=== PATIENT | female | born 1945 | race Caucasian/White ===

== ENCOUNTER 2017-04-01 08:49 | Emergency (ER) | payer BC, OTHER ==
[2017-04-01 08:55] VITALS: BP 149/80; PULSE 72; TEMP 98.8; BMI 26.5
--- NOTE | 2017-04-01 09:32 | PDOC ---
History of Present Illness - General Chief Complaint: Injury Stated Complaint: FALL Time Seen by Provider: 04/01/17 09:00 History Source: Patient Exam Limitations: No Limitations - History of Present Illness Initial Comments: 04/01/17 09:27 CHIEF COMPLAINT: Brought in by ambulance, accidental fall hit head on concrete step no LOC, severe anxiety, denies use of aspirin or anticoagulation HISTORY OF PRESENT ILLNESS: Patient is a 71 -year-old female, brought in by ambulance, status post fall while at [facility] states she was walking outside to make a phone call missed a step and fell backwards hitting head on concrete patient with severe anxiety, hematoma noted to right occiput, patient shaking with anxiety which son states is normal. Denies use of aspirin only on Synthroid no anticoagulation. Patient denies any chest pain or shortness of breath, positive headache, no visual disturbance, no neurosensory deficits. PMH: Anxiety, hypothyroidism MEDS: Synthroid ALLERGIES: None PCP: Nicholas Yuan REVIEW OF SYSTEMS: GENERAL/CONSTITUTIONAL: Awake alert and oriented HEAD, EYES, EARS, NOSE AND THROAT: No change in vision. No facial edema, no bruising. NO active bleeding. Nares intact. RESPIRATORY: No cough, wheezing, or hemoptysis. CARDIAC: Denies chest pain, no shortness of breathe. MUSCULOSKELETAL: No spinal point tenderness, Good ROM to all four extremeties. NO CVA tenderness. lateral neck pain. GI/: Denies abdominal pain, no nausea or vomiting, no bloody stool, no Hematuria. SKIN : No erythema or bruising noted. No abrasion or lacerations. NEUROLOGIC: No loss of consciousness, no numbness or tingling. Hematoma noted to right occiput PHYSICAL EXAM: GENERAL: Awake and alert and oriented x3. EYES: The pupils are equal, round, and reactive to light, with clear, conjunctiva. Good extraocular movement. No nystagmus NOSE: No nasal trauma . Midface stable MOUTH: Teeth intact. EARS: The ear canals and tympanic membranes are normal without trauma. No drainage. NECK: No Lower cervical C-spine tenderness, no pain with chin to chest. CHEST: The lungs are clear without crackles, or wheezes. No subcutaneous emphysema. No crepitus. HEART: Heart is regular rhythm, with normal S1 and S2, no murmurs. ABDOMEN: The abdomen is soft and nontender with normal bowel sounds. There is no guarding or rebound. MUSCULOSKELETAL: No spinal point tenderness. No bruising or erythema. Pelvis stable. NEUROLOGICAL:Mental status: The patient is oriented x3. No Generalized headache , Romberg - Cranial nerves: Cranial nerves II through XII are intact Motor: The upper extremities are 5 over 5 in all muscle groups. The lower extremities are 5 over 5 in all muscle groups. Sensation: Sensation is intact to light touch throughout. Cerebellar: [id number] is normal in both upper extremities. Heel-knee- rodriguez is normal in both lower extremities. Reflexes: 2+ and symmetric in the upper and lower extremities. Gait: Normal. Heel and toe walking are normal. Tandem gait is normal. SKIN: Hematoma noted to right occiput, no crepirtis, no stepoff. Past History - Past Medical History Allergies/Adverse Reactions: Allergies Allergy/AdvReac Type Severity Reaction Status Date / Time No Known Allergies Allergy Verified 04/01/17 08:52 Home Medications: Ambulatory Orders Ascorbate Calcium/Bioflav [Geovanna-C 500 mg Tablet] 1 each PO DAILY 09/16/14 Ca Cmb No.1/Vit D3/B-6/FA/B12 [Vitamin D3 1,000 Unit Tablet] 1 each PO DAILY Rosuvastatin Calcium [Crestor] 10 mg PO DAILY 09/16/14 Levothyroxine [Synthroid -] 88 mcg PO DAILY 09/29/14 Losartan Potassium [Cozaar -] 50 mg PO DAILY #30 tablet 10/01/14 Hypercholesterolemia: Yes Psychiatric Problems: Yes (ANXIETY.) Thyroid Disease: Yes (HYPO.) - Psycho/Social/Smoking Cessation Hx Anxiety: Yes Suicidal Ideation: No Smoking Status: No Smoking History: Never smoked Number of Cigarettes Smoked Daily: 0 Hx Alcohol Use: No Drug/Substance Use Hx: No *Physical Exam - Vital Signs Last Vital Signs Temp Pulse Resp BP Pulse Ox 98.8 F 72 18 149/80 98 04/01/17 08:52 04/01/17 08:52 04/01/17 08:52 04/01/17 08:52 04/01/17 08:52 ED Treatment Course - RADIOLOGY Radiology Studies Ordered: Category Date Time Status HEAD CT WITHOUT CONTRAST [CT] Stat CT Scan 04/01/17 09:26 Ordered Medical Decision Making - Medical Decision Making 04/01/17 09:31 A/P: Patient status post fall, head injury, not on anticoagulation however patient with severe anxiety unable to assess Patient appropriately, son states that this is patient's normal baseline. Will perform head CT, patient denies any neck pain no neurosensory deficits. 04/01/17 10:00 CT scan is negative for acute intracranial pathology, no fracture, will DC patient home supportive care no Motrin or Advil aspirin or Aleve, Tylenol only for headache. I discussed the physical exam findings, ancillary test results and final diagnoses with the patient. I answered all of the patient's questions. The patient was satisfied with the care received and felt comfortable with the discharge plan and treatment plan. The patient will call to arrange follow-up and will return to the Emergency Department with any new, persistent or worsening symptoms. *DC/Admit/Observation/Transfer Diagnosis at time of Disposition: Closed head injury Qualifiers: Encounter type: initial encounter Qualified Code(s): S09.90XA - Unspecified injury of head, initial encounter - Discharge Dispostion Disposition: HOME Condition at time of disposition: Good Admit: No - Referrals Referrals: Bhavesh Jara MD [Primary Care Provider] - - Patient Instructions Printed Discharge Instructions: DI for Closed Head Injury Additional Instructions: U head CAT scan is negative for acute intracranial pathology, there is no evidence of fracture. If any increased headache, visual disturbance, nausea vomiting, neurosensory deficits, or any other concerns please call 911 or return immediately to emergency department. Advil, Aleve, Motrin or aspirin for the next 48 hours
== END 2017-04-01 10:04 | disposition home or self-care (01) ==
LOC: JERFT 08:49 → SUPCPDRO 08:49 → JERFT 10:04
DX: S00.03XA Contusion of scalp, initial encounter (principal); W10.8XXA Fall (on) (from) other stairs and steps, initial encounter; Y93.89 Activity, other specified; Y92.22 Religious institution as the place of occurrence of the external cause; Y99.8 Other external cause status; E03.9 Hypothyroidism, unspecified; F41.9 Anxiety disorder, unspecified; E78.00 Pure hypercholesterolemia, unspecified
CPT/HCPCS: 70450-TC; 99281-25

== ENCOUNTER 2024-05-08 10:35 | Emergency (ER) | payer OTHER, BC ==
[2024-05-08 10:47] VITALS: BMI 28.3
[2024-05-08] MEDS: SODIUM CHLORIDE 0.9% 500 ML INFUS.BAG IV ONE (13:07)
[2024-05-08 13:10] LABS: BASO % 0.5 % (0-2.0); EOS % 1.8 % (0-4.5); HEMATOCRIT 38.8 % (32.4-45.2); HEMOGLOBIN 13.3 GM/dL (10.7-15.3); LYMPH % 23.7 % (8-40); MCH 29.8 pg (25.7-33.7); MCHC 34.2 g/dl (32.0-36.0); MEAN CELL VOLUME 87.2 fl (80-96); MEAN PLT VOLUME 8.6 fl (7.5-11.1); MONO % 7.6 % (3.8-10.2); NEUT % 66.4 % (42.8-82.8); PLATELET COUNT 210 10^3/uL (134-434); RBC 4.44 M/mm3 (3.60-5.2); RDW 13.8 % (11.6-15.6); WHITE BLOOD COUNT 6.4 K/mm3 (4.0-10.0)
[2024-05-08 13:24] LABS: POTASSIUM 5.7 mmol/L (3.5-5.1)
[2024-05-08 13:26] LABS: BLOOD UREA NITROGEN 13.8 mg/dL (7-18); CALCIUM 9.1 mg/dL (8.5-10.1)
[2024-05-08 13:27] LABS: ALBUMIN 3.4 g/dl (3.4-5.0)
[2024-05-08 13:29] LABS: CREATININE 0.8 mg/dL (0.55-1.3)
[2024-05-08 13:31] LABS: BILIRUBIN,TOTAL 0.9 mg/dL (0.2-1)
[2024-05-08] MEDS ORDERED: MECLIZINE HCL 25 MG TABLET (FP) ONE (13:48)
[2024-05-08] MEDS: MECLIZINE HCL 25 MG TABLET (FP) PO ONE (13:51)
[2024-05-08] MEDS: LACTATED RINGERS SOLUTION 1000 ML INFUS.BAG IV ONE (18:28)
[2024-05-08] MEDS ORDERED: DOCUSATE SODIUM 100 MG CAPSULE (FP) PO PRN (20:42)
[2024-05-09 09:26] LABS: BASO % 0.4 % (0-2.0); EOS % 3.3 % (0-4.5); HEMATOCRIT 38.1 % (32.4-45.2); HEMOGLOBIN 12.9 GM/dL (10.7-15.3); LYMPH % 27.3 % (8-40); MCH 29.5 pg (25.7-33.7); MCHC 33.9 g/dl (32.0-36.0); MEAN CELL VOLUME 87.3 fl (80-96); MEAN PLT VOLUME 8.8 fl (7.5-11.1); MONO % 9.4 % (3.8-10.2); NEUT % 59.6 % (42.8-82.8); PLATELET COUNT 210 10^3/uL (134-434); RBC 4.37 M/mm3 (3.60-5.2); RDW 13.9 % (11.6-15.6); WHITE BLOOD COUNT 6.3 K/mm3 (4.0-10.0)
[2024-05-09 09:47] LABS: POTASSIUM 4.3 mmol/L (3.5-5.1)
[2024-05-09 10:12] LABS: MAGNESIUM 2.4 mg/dL (1.8-2.4)
[2024-05-09] MEDS: CANDESARTAN CILEXETIL PO SCH (10:12)
[2024-05-09 10:15] LABS: CREATININE 0.7 mg/dL (0.55-1.3); PHOSPHOROUS 3.5 mg/dL (2.5-4.9)
[2024-05-09 19:03] LABS: EPI CELLS 3 /uL (0-25.1); HYALINE CASTS 0 /uL (0-3.1); PH,URINE 6.5 (5.0-8.0); URINE APPEARANCE CLEAR; URINE BACTERIA 9 /uL (0-1359); URINE BILIRUBIN NEGATIVE (NEGATIVE); URINE COLOR YELLOW; URINE GLUCOSE (UA) NEGATIVE (NEGATIVE); URINE KETONE NEGATIVE (NEGATIVE); URINE LEUK ESTERASE TRACE (NEGATIVE); URINE NITRITE NEGATIVE (NEGATIVE); URINE PROTEIN NEGATIVE (NEGATIVE); URINE RBC 6 /uL (0-23.9); URINE UROBILINOGEN 0.2 mg/dL (0.2-1.0); URINE WBC 7 /uL (0-25.8)
[2024-05-09] MEDS: amLODIPine BESYLATE 2.5 MG TABLET (FP) PO SCH (21:25)
[2024-05-10 05:04] VITALS: RESP 18
[2024-05-10] MEDS: ACETAMINOPHEN 325 MG TABLET (FP) PO PRN (07:09)
[2024-05-10] MEDS: MECLIZINE HCL 12.5 MG TABLET PO PRN (08:49)
[2024-05-10] MEDS: LIDOCAINE 4% PATCH TP SCH (10:45)
[2024-05-10] MEDS: POLYETHYLENE GLYCOL (HEALTHYLAX) 3350 17 GM PACKET PO SCH (10:46)
[2024-05-10 18:44] VITALS: BP 111/68; PULSE 61; TEMP 98.5
[2024-05-10] MEDS ORDERED: LIDOCAINE PATCH REMOVAL MC SCH (22:00)
== END 2024-05-10 19:36 | disposition home or self-care (01) ==
LOC: JER 10:35 → JERBED 16:24 → J4S 05-09 03:18
PROVIDERS: ADMIT Internal Medicine; ATTEND Family Medicine
DX: R42 Dizziness and giddiness (principal); R11.0 Nausea
CPT/HCPCS: 36415; 70450-TC; 80048; 80053; 81003; 82607; 82746; 82962; 83735; 84100; 84439; 84443; 85025; 87086; 93005; 93010; 97116-GP; 97161-GP; 99285-25; G0378

== ENCOUNTER 2024-05-13 04:20 | Day surgery (SDC) | payer OTHER, BC ==
[2024-05-08 13:43] VITALS: BMI 28.9
[2024-05-13 11:07] VITALS: TEMP 98
[2024-05-13 11:42] VITALS: BP 115/69; PULSE 64; RESP 12
== END 2024-05-13 12:01 | disposition home or self-care (01) ==
LOC: JASU-ENDO 04:20
PROVIDERS: ATTEND Internal Medicine Gastroenterology
PROC: 0DBL8ZX Excision of Transverse Colon, Via Natural or Artificial Opening Endoscopic, Diagnostic (ICD-10-PCS; 2024-05-13)
PROC: 0DBN8ZX Excision of Sigmoid Colon, Via Natural or Artificial Opening Endoscopic, Diagnostic (ICD-10-PCS; 2024-05-13)
PROC: 0DBM8ZX Excision of Descending Colon, Via Natural or Artificial Opening Endoscopic, Diagnostic (ICD-10-PCS; 2024-05-13)
PROC: 0DBK8ZX Excision of Ascending Colon, Via Natural or Artificial Opening Endoscopic, Diagnostic (ICD-10-PCS; principal; 2024-05-13 09:30)
DX: K64.8 Other hemorrhoids (principal); D12.2 Benign neoplasm of ascending colon; D12.4 Benign neoplasm of descending colon; D12.5 Benign neoplasm of sigmoid colon; D12.3 Benign neoplasm of transverse colon; K57.30 Diverticulosis of large intestine without perforation or abscess without bleeding
CPT/HCPCS: 88305-TC

== ENCOUNTER 2024-11-16 18:12 | Emergency (ER) | payer OTHER, BC ==
[2024-11-16 18:23] VITALS: BP 149/85; PULSE 65; RESP 16; TEMP 97.9; BMI 26.6
[2024-11-16 21:00] LABS: BASO % 0.3 % (0-2.0); EOS % 2.4 % (0-4.5); HEMATOCRIT 40.1 % (32.4-45.2); HEMOGLOBIN 13.2 GM/dL (10.7-15.3); LYMPH % 30.4 % (8-40); MEAN CELL VOLUME 88.1 fl (80-96); MEAN PLT VOLUME 8.5 fl (7.5-11.1); MONO % 8.7 % (3.8-10.2); NEUT % 58.2 % (42.8-82.8); PLATELET COUNT 221 10^3/uL (134-434); RBC 4.56 M/mm3 (3.60-5.2); RDW 14.1 % (11.6-15.6); WHITE BLOOD COUNT 6.7 K/mm3 (4.0-10.0)
[2024-11-16 21:22] LABS: EPI CELLS 13 /uL (0-25.1); HYALINE CASTS 1 /uL (0-3.1); PH,URINE 5.5 (5.0-8.0); URINE APPEARANCE CLEAR; URINE BACTERIA 88 /uL (0-1359); URINE BILIRUBIN NEGATIVE (NEGATIVE); URINE COLOR YELLOW; URINE GLUCOSE (UA) NEGATIVE (NEGATIVE); URINE KETONE TRACE (NEGATIVE); URINE LEUK ESTERASE 2+ (NEGATIVE); URINE NITRITE NEGATIVE (NEGATIVE); URINE PROTEIN NEGATIVE (NEGATIVE); URINE RBC 24 /uL (0-23.9); URINE UROBILINOGEN 0.2 mg/dL (0.2-1.0); URINE WBC 110 /uL (0-25.8)
[2024-11-16 21:26] LABS: POTASSIUM 4.3 mmol/L (3.5-5.1)
[2024-11-16] MEDS: SODIUM CHLORIDE 0.9% 500 ML INFUS.BAG IV ONE (21:26)
[2024-11-16 21:29] LABS: CALCIUM 9.3 mg/dL (8.5-10.1)
[2024-11-16 21:30] LABS: ALBUMIN 3.6 g/dl (3.4-5.0); BLOOD UREA NITROGEN 22.9 mg/dL (7-18); MAGNESIUM 2.3 mg/dL (1.8-2.4)
[2024-11-16 21:33] LABS: CREATININE 0.8 mg/dL (0.55-1.3)
[2024-11-16 21:34] LABS: BILIRUBIN,TOTAL 0.5 mg/dL (0.2-1)
[2024-11-16 21:35] LABS: TOT PROT 7.1 g/dl (6.4-8.2)
== END 2024-11-16 23:49 | disposition home or self-care (01) ==
LOC: JER 18:12
DX: H53.8 Other visual disturbances (principal); F41.9 Anxiety disorder, unspecified; Z20.822 Contact with and (suspected) exposure to COVID-19
CPT/HCPCS: 0241U-QW; 36415; 70450-TC; 80053; 81003; 83735; 84439; 84443; 84484; 85025; 87086; 93005; 93010; 99285-25